=== PATIENT | female | born 1980 | race Hispanic/Latino ===

== ENCOUNTER 2021-03-26 08:53 | Emergency (ER) | payer SELFPAY ==
[~2021-03-26] VITALS: Ht 175.3 cm; Wt 74.8 kg
[2021-03-26] MEDS ORDERED: FENTANYL CITRATE/PF 100MCG/2 ML INJ IV PRN (09:15)
[2021-03-26 09:30] LABS: BASOPHILS % 0.5 % (0.0-1.0); EOSINOPHILS # (AUTO) 0.2 (0.0-0.4); EOSINOPHILS % 3.3 % (0.0-6.0); LYMPHOCYTES # (AUTO) 1.7 (1.0-3.2); LYMPHOCYTES % 28.8 % (18.0-39.1); MEAN CORPUSCULAR HEMOGLOBIN 27.2 pg (28-32); MEAN CORPUSCULAR HGB CONC 31.6 g/dL (31-35); MEAN CORPUSCULAR VOLUME 86.2 fL (81-99); MONOCYTES # (AUTO) 0.4 (0.2-0.8); MONOCYTES % 6.8 % (4.4-11.3); NEUTROPHILS # (AUTO) 3.5 (2.1-6.9); NEUTROPHILS % 60.3 % (38.7-80.0); PLATELET COUNT 342 x10e3/uL (140-360); RED BLOOD COUNT 4.41 x10e6/uL (3.6-5.1); RED CELL DISTRIBUTION WIDTH 14.2 % (11.7-14.4)
[2021-03-26 09:38] LABS: CLARITY,URINE CLEAR (CLEAR); COLOR,URINE YELLOW (YELLOW)
[2021-03-26 09:39] LABS: KETONES,URINE NEGATIVE (NEGATIVE); LEUKOCYTE ESTERASE ,URINE NEGATIVE (NEGATIVE); NITRITE,URINE NEGATIVE (NEGATIVE); PROTEIN,URINE DIPSTICK NEGATIVE (NEGATIVE); URINE UROBILINOGEN 0.2 mg/dL (0.2 - 1)
[2021-03-26 09:47] LABS: WBC,URINE (MAN) 0-5 /HPF (0-5)
[2021-03-26 09:48] LABS: BACTERIA,URINE FEW /HPF; EPITHELIAL CELLS,URINE MODERATE /LPF; RBC,URINE 0-5 /HPF (0-5)
[2021-03-26 10:29] LABS: ALBUMIN 3.7 g/dL (3.5-5.0); ALBUMIN/GLOBULIN RATIO 1.1 (0.8-2.0); ANION GAP 12.2 mmol/L (8-16); CALCIUM 8.3 mg/dL (8.4-10.2); CREATININE, SERUM 0.7 mg/dL (0.57-1.11); POTASSIUM 4.2 mmol/L (3.5-5.1)
[2021-03-26] MEDS ORDERED: SODIUM CHLORIDE 0.9% 1000ML 1,000 ML IV SCH (10:30)
[2021-03-26] MEDS ORDERED: SODIUM CHLORIDE 0.9% 50ML 50 ML ONE (10:30)
[2021-03-26] MEDS ORDERED: IOPAMIDOL 370 MG/ML 200 ML INFUS..BTL INJ ONE (10:30)
[2021-03-26] MEDS ORDERED: KETOROLAC TROMETHAMINE 30 MG/ML VIAL IV STA (12:11)
[2021-03-26] MEDS ORDERED: KETOROLAC TROMETHAMINE 30 MG/ML VIAL ONE (12:23)
== END 2021-03-26 12:19 | disposition home or self-care (01) ==
LOC: ER 09:15
DX: R10.30 Lower abdominal pain, unspecified (principal); D25.9 Leiomyoma of uterus, unspecified
CPT/HCPCS: 36415; 74177; 80053; 81001; 84702; 85025; 99284; J1885; Q9967

== ENCOUNTER 2022-11-03 23:11 | Emergency (ER) | payer SELFPAY ==
[~2022-11-03] VITALS: Ht 175.3 cm; Wt 74.8 kg
[2022-11-03] MEDS ORDERED: AZITHROMYCIN250 MG PO (23:42)
[2022-11-03] MEDS ORDERED: PREDNISONE20 MG PO (23:42)
== END 2022-11-03 23:51 | disposition home or self-care (01) ==
LOC: ER 23:22
DX: R05.9 Cough, unspecified (principal); J02.9 Acute pharyngitis, unspecified
CPT/HCPCS: 99282

== ENCOUNTER 2023-04-30 08:50 | Emergency (ER) | payer SELFPAY ==
[~2023-04-30] VITALS: Ht 175.3 cm; Wt 74.8 kg
[~2023-04-30 08:50] MED LIST: AZITHROMYCIN250 MG PO; PENICILLIN V P500 MG PO; PREDNISONE20 MG PO
[2023-04-30 09:55] LABS: RESPIRATORY SYNC. VIRUS POSITIVE (NEGATIVE)
[2023-04-30 10:11] LABS: INFLUENZAE A&B ANTIGEN (RAPID) NEGATIVE (NEGATIVE)
[2023-04-30 10:56] VITALS: O2SAT 100
== END 2023-04-30 11:00 | disposition home or self-care (01) ==
LOC: ER 08:59
DX: R05.9 Cough, unspecified (principal); B97.4 Respiratory syncytial virus as the cause of diseases classified elsewhere; U07.1 COVID-19
CPT/HCPCS: 87400; 87420; 99282; U0002

== ENCOUNTER 2024-03-05 11:16 | Emergency (ER) | payer BC, OTHER ==
[~2024-03-05] VITALS: Ht 175.3 cm; Wt 68.9 kg
[~2024-03-05 11:16] MED LIST changes: +CARAFATE1 GM PO; +DICYCLOMINE HCL20 MG PO; +PANTOPRAZOLE SO40 MG PO
[2024-03-05 11:46] VITALS: TEMP 98.6
[2024-03-05 12:38] LABS: BASOPHILS % 0.5 % (0.0-1.0); EOSINOPHILS # (AUTO) 0.1 (0.0-0.4); EOSINOPHILS % 1.5 % (0.0-6.0); HEMATOCRIT 40.4 % (34.2-44.1); HEMOGLOBIN 12.7 g/dL (12.0-16.0); LYMPHOCYTES # (AUTO) 1.5 (1.0-3.2); LYMPHOCYTES % 20.3 % (18.0-39.1); MEAN CORPUSCULAR HEMOGLOBIN 28.2 pg (28-32); MEAN CORPUSCULAR HGB CONC 31.4 g/dL (31-35); MEAN CORPUSCULAR VOLUME 89.6 fL (81-99); MONOCYTES # (AUTO) 0.6 (0.2-0.8); NEUTROPHILS # (AUTO) 5.1 (2.1-6.9); NEUTROPHILS % 69.4 % (38.7-80.0); PLATELET COUNT 336 x10e3/uL (140-360); RED BLOOD COUNT 4.51 x10e6/uL (3.6-5.1); RED CELL DISTRIBUTION WIDTH 14.6 % (11.7-14.4); WHITE BLOOD COUNT 7.33 x10e3/uL (4.8-10.8)
[2024-03-05 12:44] LABS: CLARITY,URINE TURBID (CLEAR); COLOR,URINE YELLOW (YELLOW); LEUKOCYTE ESTERASE ,URINE TRACE (NEGATIVE); NITRITE,URINE NEGATIVE (NEGATIVE); PH,URINE 7 (5 - 7)
[2024-03-05 12:45] LABS: BACTERIA,URINE FEW /HPF; BILIRUBIN,URINE NEGATIVE (NEGATIVE); EPITHELIAL CELLS,URINE FEW /LPF; GLUCOSE, URINE NEGATIVE (NEGATIVE); KETONES,URINE NEGATIVE (NEGATIVE); PROTEIN,URINE DIPSTICK NEGATIVE (NEGATIVE); RBC,URINE 0-5 /HPF (0-5); URINE UROBILINOGEN 0.2 mg/dL (0.2 - 1); WBC,URINE (MAN) >50 /HPF (0-5)
[2024-03-05 13:31] LABS: ANION GAP 12.4 mmol/L (8-16); CREATININE, SERUM 0.7 mg/dL (0.6-1.2); POTASSIUM 4.4 mmol/L (3.0-5.1)
[2024-03-05 13:32] LABS: BILIRUBIN,TOTAL 0.4 mg/dL (0.2-1.6); CALCIUM 9.3 mg/dL (8.0-10.3)
[2024-03-05 13:33] LABS: ALBUMIN 3.4 g/dL (3.3-5.5); ALBUMIN/GLOBULIN RATIO 0.8 (0.8-2.0); TOTAL PROTEIN 7.6 g/dL (6.4-8.1)
[2024-03-05 14:20] VITALS: PULSE 72; RESP 16
[2024-03-05] MEDS ORDERED: CEFDINIR300 MG PO (14:27)
[2024-03-05 14:50] VITALS: BP 131/94; PULSE 70; RESP 16; O2SAT 100
== END 2024-03-05 14:50 | disposition home or self-care (01) ==
LOC: ER 11:23
DX: N39.0 Urinary tract infection, site not specified (principal); Z87.440 Personal history of urinary (tract) infections; N85.2 Hypertrophy of uterus
CPT/HCPCS: 36415; 74176; 80053; 81001; 84702; 85025; 99284